=== PATIENT | male | born 1975 | race African-American/Black ===

== ENCOUNTER 2017-01-21 10:08 | Emergency (ER) | payer OTHER ==
[2017-01-21 10:12] VITALS: BP 150/82; PULSE 78; TEMP 98; BMI 33.9
[2017-01-21] MEDS ORDERED: KETOROLAC TROMETHAMINE 60 MG/2 ML VIAL IM ONE (10:59)
[2017-01-21] MEDS ORDERED: KETOROLAC TROMETHAMINE 60 MG/2 ML VIAL ONE (11:05)
--- NOTE | 2017-01-21 11:48 | PDOC ---
History of Present Illness - General Chief Complaint: Back Pain Stated Complaint: BACK PAIN Time Seen by Provider: 01/21/17 10:59 History Source: Patient Exam Limitations: No Limitations - History of Present Illness Initial Comments: 01/21/17 11:29 CHIEF COMPLAINT: Lower back pain HISTORY OF PRESENT ILLNESS: 41-year-old male, history of low back pain states that he has not had an issue for the last year, last evening was in the shower and slipped did not fall however after incident developed lower back pain. Nonradiating pain, no neurosensory deficits, no bowel or bladder difficulty incontinence or urinary retention, no saddle anesthesia, no footdrop. No history of IVDU or history of cancer. REVIEW OF SYSTEMS: GENERAL: Afebrile, denies any weakness RESPIRATORY: No cough, wheezing, or hemoptysis. CARDIAC: No chest pain or shortness of breath MUSCULOSKELETAL: Pain to generalized lower back. No point tenderness. Pain worse on right than left. SKIN : No erythema, no bruising, no deformity. GI/: Denies any abdominal pain, no urinary difficulty, incontinence or urinary retention. RECTAL: Denies any difficulty this A.m. NEUROLOGICAL: Denies any numbness or tingling. No neurosensory deficits. PHYSICAL EXAM: GENERAL: The patient is awake, alert, and fully oriented, in no acute distress. RESPIRATORY: Lungs clear bilaterally, no rhonchi wheezes or crackles CARDIAC: S1-S2 audible, no murmur rub or gallop MUSCULOSKELETAL: Pain to generalized lower back, nonradiating, no tingling or sensory deficit. Less than 2 second cap refill, +4 popliteal and pedal pulses. GI/: Abdomen soft, nontender, nondistended. No rebound tenderness. No masses palpable. MUSCULOSKELETAL: No spinal point tenderness. Normal reflexive and no deficits to sensation or strength. RECTAL: Deferred patient with no neurological findings SKIN: Warm, Dry, normal turgor, no erythema, no edema no bruising. 01/21/17 12:01 Past History - Past Medical History Allergies/Adverse Reactions: Allergies Allergy/AdvReac Type Severity Reaction Status Date / Time No Known Allergies Allergy Verified 01/21/17 10:09 Home Medications: Ambulatory Orders Cyclobenzaprine HCl [Flexeril 10 mg] 10 mg PO BID PRN #20 tablet MDD 2 01/21/17 Methylprednisolone [Medrol Dose Anish] 4 mg PO ASDIR #21 tablet 01/21/17 Other medical history: back problems, sleep apnea - Psycho/Social/Smoking Cessation Hx Anxiety: No Suicidal Ideation: No Smoking History: Never smoked Have you smoked in the past 12 months: No Information on smoking cessation initiated: No Hx Alcohol Use: No Drug/Substance Use Hx: No Substance Use Type: None *Physical Exam - Vital Signs Last Vital Signs Temp Pulse Resp BP Pulse Ox 98.0 F 78 18 150/82 100 01/21/17 10:10 01/21/17 10:10 01/21/17 10:10 01/21/17 10:10 01/21/17 10:10 ED Treatment Course - Medications Given in the ED: ED Medications Discontinued Medications Generic Name Dose Route Start Last Admin Trade Name Asha PRN Reason Stop Dose Admin Ketorolac Tromethamine 60 mg 01/21/17 10:59 01/21/17 11:14 Toradol Injection - IM 01/21/17 11:00 60 mg ONCE ONE Administration Medical Decision Making - Medical Decision Making 01/21/17 12:01 A/P: Patient here for evaluation of low back spasm. Patient does lift heavy material at work, did have history of low back pain exacerbated last evening when he slipped and caught himself before falling in the shower. Denies any neurosensory deficits, nonradiating pain. Toradol 60 mg IM given in the ER with minimal result patient did drive to emergency department unable to give Valium at this time. Patient is ambulatory without difficulty, requesting note states he was unable to go to work today with DC patient home with strict follow-up with orthopedics, Medrol Dosepak, and Flexeril as needed. I discussed the physical exam findings, ancillary test results and final diagnoses with the patient. I answered all of the patient's questions. The patient was satisfied with the care received and felt comfortable with the discharge plan and treatment plan. The patient will call to arrange follow-up and will return to the Emergency Department with any new, persistent or worsening symptoms. *DC/Admit/Observation/Transfer Diagnosis at time of Disposition: Low back pain Qualifiers: Chronicity: acute Back pain laterality: bilateral Sciatica presence: without sciatica Qualified Code(s): M54.5 - Low back pain - Discharge Dispostion Disposition: HOME Condition at time of disposition: Good Admit: No - Prescriptions Prescriptions: Cyclobenzaprine HCl [Flexeril 10 mg] 10 mg PO BID PRN #20 tablet MDD 2 PRN Reason: Pain Methylprednisolone [Medrol Dose Anish] 4 mg PO ASDIR #21 tablet - Referrals Referrals: Markell Nath MD [Staff Physician] - - Patient Instructions Printed Discharge Instructions: DI for Low Back Pain Additional Instructions: 1. Please return to the emergency department with any numbness, tingling, weakness, numbness or tingling to groin or legs, or loss of bowel or bladder function. 2. Use pain medication as ordered. 3. Please is to followup in the office of Dr. Nath for evaluation within a week if no improvement. 4. Ice or heat 5. Refrain from lifting anything above 10 pounds, until pain resolved. - Post Discharge Activity Work/School Note: Back to Work
== END 2017-01-21 11:55 | disposition home or self-care (01) ==
LOC: JERFT 10:08
PROC: 3E0233Z Introduction of Anti-inflammatory into Muscle, Percutaneous Approach (ICD-10-PCS; principal; 2017-01-21)
DX: M62.830 Muscle spasm of back (principal); W18.2XXA Fall in (into) shower or empty bathtub, initial encounter; Y93.E1 Activity, personal bathing and showering; Y92.031 Bathroom in apartment as the place of occurrence of the external cause; Y99.8 Other external cause status
CPT/HCPCS: 99281-25

== ENCOUNTER 2022-10-15 06:26 | Emergency (ER) | payer BC, OTHER ==
[2022-10-15 06:35] VITALS: BP 113/74; PULSE 78; RESP 18; TEMP 98.2; BMI 33.9
[2022-10-15] MEDS ORDERED: KETOROLAC TROMETHAMINE 30 MG/1 ML VIAL IM ONE (07:57)
[2022-10-15] MEDS ORDERED: KETOROLAC TROMETHAMINE 30 MG/1 ML VIAL ONE (07:59)
== END 2022-10-15 09:15 | disposition home or self-care (01) ==
LOC: JERFT 06:26 → JER 06:26 → JERFT 09:15
PROC: 3E0233Z Introduction of Anti-inflammatory into Muscle, Percutaneous Approach (ICD-10-PCS; principal; 2022-10-15)
DX: M79.672 Pain in left foot (principal); G89.29 Other chronic pain
CPT/HCPCS: 99284-25

== ENCOUNTER 2022-12-16 08:14 | Day surgery (SDC) | payer BC ==
[2022-12-13 17:09] VITALS: BMI 33.9
[2022-12-16 09:55] VITALS: TEMP 96.6
[2022-12-16 10:01] VITALS: BP 102/68; PULSE 72; RESP 19
== END 2022-12-16 10:02 | disposition home or self-care (01) ==
LOC: FASU-ENDO 08:14
PROVIDERS: ATTEND Internal Medicine Gastroenterology
PROC: 0DBN8ZX Excision of Sigmoid Colon, Via Natural or Artificial Opening Endoscopic, Diagnostic (ICD-10-PCS; principal; 2022-12-16 09:22)
DX: Z12.11 Encounter for screening for malignant neoplasm of colon (principal); K63.5 Polyp of colon; K64.1 Second degree hemorrhoids
CPT/HCPCS: 88305-TC

== ENCOUNTER 2024-04-14 18:55 | Emergency (ER) | payer BC ==
[2024-04-14 19:09] VITALS: TEMP 98.4; BMI 34.5
[2024-04-14] MEDS ORDERED: ACETAMINOPHEN INJECTION 100 ML ONE (21:06)
[2024-04-14] MEDS ORDERED: ONDANSETRON 4 MG/2 ML VIAL ONE (21:07)
[2024-04-14] MEDS: ACETAMINOPHEN 1000 MG/100 ML BAG IVPB ONE (21:16)
[2024-04-14] MEDS: SODIUM CHLORIDE 0.9% 500 ML INFUS.BAG IV ONE (21:16)
[2024-04-14] MEDS: ONDANSETRON 4 MG/2 ML VIAL IVPUSH ONE (21:16)
[2024-04-14 21:41] LABS: POTASSIUM 4.5 mmol/L (3.5-5.1)
[2024-04-14 21:43] LABS: CALCIUM 9.2 mg/dL (8.5-10.1)
[2024-04-14 21:44] LABS: ALBUMIN 3.7 g/dl (3.4-5.0); BLOOD UREA NITROGEN 15.5 mg/dL (7-18)
[2024-04-14 21:48] LABS: BILIRUBIN,TOTAL 0.5 mg/dL (0.2-1); TOT PROT 7.6 g/dl (6.4-8.2)
[2024-04-14 21:52] LABS: PH,URINE 5.5 (5.0-8.0); URINE APPEARANCE CLEAR; URINE BILIRUBIN NEGATIVE (NEGATIVE); URINE COLOR YELLOW; URINE GLUCOSE (UA) NEGATIVE (NEGATIVE); URINE KETONE NEGATIVE (NEGATIVE); URINE LEUK ESTERASE NEGATIVE (NEGATIVE); URINE NITRITE NEGATIVE (NEGATIVE); URINE PROTEIN NEGATIVE (NEGATIVE); URINE UROBILINOGEN 0.2 mg/dL (0.2-1.0)
[2024-04-14 21:54] LABS: BASO % 0.6 % (0-2.0); EOS % 2.9 % (0-4.5); HEMATOCRIT 41.4 % (35.4-49); HEMOGLOBIN 13.9 GM/dL (11.7-16.9); LYMPH % 15.2 % (8-40); MCH 26.8 pg (25.7-33.7); MCHC 33.7 g/dl (32.0-35.9); MEAN CELL VOLUME 79.6 fl (80-96); MEAN PLT VOLUME 7.9 fl (7.5-11.1); MONO % 5.9 % (3.8-10.2); NEUT % 75.4 % (42.8-82.8); PLATELET COUNT 289 10^3/uL (134-434); RDW 13.6 % (11.9-15.9); WHITE BLOOD COUNT 9.3 K/mm3 (4.0-10.0)
[2024-04-14 21:58] LABS: INR 1.04 (0.83-1.09)
[2024-04-14 22:00] LABS: ACTIVATED PTT 28.5 SECONDS (25.2-36.5)
[2024-04-14 22:33] LABS: HIV INTERPRETATION NEGATIVE (NEGATIVE)
[2024-04-14] MEDS ORDERED: KETOROLAC TROMETHAMINE 30 MG/1 ML VIAL ONE (22:34)
[2024-04-14] MEDS: KETOROLAC TROMETHAMINE 30 MG/1 ML VIAL IVPUSH ONE (22:41)
[2024-04-15 00:17] VITALS: BP 110/71; PULSE 66; RESP 20
[2024-04-15] MEDS ORDERED: AMOX TR/POT CLAV 875MG/125MG TABLETS (FP) ONE (01:15)
[2024-04-15] MEDS: AMOX TR/POT CLAV 875MG/125MG TABLETS (FP) PO ONE (01:19)
== END 2024-04-15 01:26 | disposition home or self-care (01) ==
LOC: JER 18:55
PROC: 3E033NZ Introduction of Analgesics, Hypnotics, Sedatives into Peripheral Vein, Percutaneous Approach (ICD-10-PCS; principal; 2024-04-14)
PROC: 3E0333Z Introduction of Anti-inflammatory into Peripheral Vein, Percutaneous Approach (ICD-10-PCS; 2024-04-14)
PROC: 3E033GC Introduction of Other Therapeutic Substance into Peripheral Vein, Percutaneous Approach (ICD-10-PCS; 2024-04-14)
DX: K57.32 Diverticulitis of large intestine without perforation or abscess without bleeding (principal); R10.32 Left lower quadrant pain
CPT/HCPCS: 36415; 74177-TC; 80053; 81003; 85025; 85610; 85730; 86803; 86850; 86900; 86901; 87086; 87389; 99285-25; J0131

== ENCOUNTER 2024-04-26 12:35 | Emergency (ER) | payer OTHER, BC ==
[2024-04-26 12:45] VITALS: BP 117/78; PULSE 76; RESP 16; TEMP 98.6; BMI 34.5
[2024-04-26] MEDS ORDERED: KETOROLAC TROMETHAMINE 30 MG/1 ML VIAL ONE (13:07)
[2024-04-26] MEDS: KETOROLAC TROMETHAMINE 30 MG/1 ML VIAL IM ONE (13:10)
== END 2024-04-26 13:15 | disposition home or self-care (01) ==
LOC: FER 12:35
DX: M54.2 Cervicalgia (principal); M25.511 Pain in right shoulder; R51.9 Headache, unspecified; M54.9 Dorsalgia, unspecified; V59.50XA Passenger in pick-up truck or van injured in collision with unspecified motor vehicles in traffic accident, initial encounter
CPT/HCPCS: 99283-25